=== PATIENT | male | born 1965 | race Caucasian/White ===

== ENCOUNTER 2018-05-31 20:33 | Emergency (ER) | payer OTHER ==
[2018-05-31] MEDS ORDERED: NA CHLORIDE 0.9% 1,000 ML ONE (21:47)
--- NOTE | 2018-05-31 22:01 | RAD REPORT ---
EXAM DESCRIPTION: Asif Single View05/31/2018 9:53 pm CLINICAL HISTORY: cough COMPARISON: none FINDINGS: The lungs appear clear of acute infiltrate. The heart is normal size. If the film is labeled correctly dextrocardia is present
--- NOTE | 2018-05-31 22:05 | RAD REPORT ---
EXAM DESCRIPTION: CT - Head Brain Wo Cont - 05/31/2018 9:46 pm CLINICAL HISTORY: Dizziness COMPARISON: None. TECHNIQUE: Computed axial tomography of the head was obtained. IV contrast was not requested. All CT scans are performed using dose optimization technique as appropriate and may include automated exposure control or mA/KV adjustment according to patient size. FINDINGS: An intracranial bleed is not seen . The ventricles are normal in caliber. No extra-axial fluid collection is noted. Fluid within the sinuses/ mastoids is not seen. IMPRESSION: No acute intracranial abnormality is seen. If patient's symptoms persist MRI of the bra in would be recommended.
[2018-05-31 22:10] LABS: Absolute Lymphocytes (CBC) 2.1 K/uL (0.7-4.9); Absolute Monocytes 1.1 K/uL (0.1-1.3); Absolute Neutrophil 8.6 K/uL (1.8-8.0); Basophils % 0.6 % (0-1.3); Eosinophils % 0.5 % (0-4.4); Lymphocytes % 17.7 % (15.3-44.8); MCH 29.7 pg (27.0-35.0); MCV 85.9 fL (80-100); MPV 8.7 fL (7.6-11.3); Monocytes % 8.9 % (3.3-12.3); RBC Red Blood Cell Count 5.83 M/uL (4.33-5.43)
[2018-05-31 22:36] LABS: Protime INR 0.98
[2018-05-31] MEDS ORDERED: AMLODIPINE 5 MG TAB ONE (22:42)
[2018-05-31 22:47] LABS: ALT/SGPT 24 U/L (12-78); AST/SGOT 16 U/L (15-37); Albumin 3.6 g/dL (3.4-5.0); Alkaline Phosphatase 93 U/L (45-117); BUN Blood Urea Nitrogen 19 mg/dL (7-18); Bicarbonate 27 mmol/L (21-32); Bilirubin Direct < 0.1 mg/dL (0-0.2); Bilirubin Total 0.3 mg/dL (0.2-1.0); CKMB Creatine Kinase MB < 1.0 ng/mL (0.3-3.6); Creatine Phosphokinase 105 U/L (39-308); Glucose Level 118 mg/dL (74-106); Lipase 98 U/L (73-393); Magnesium 2.5 mg/dL (1.8-2.4); NT PRO-BNP 21 pg/mL (<125); Potassium 4.1 mmol/L (3.5-5.1); Protein, Total 7.5 g/dL (6.4-8.2); Sodium Level 140 mmol/L (136-145)
--- NOTE | 2018-05-31 23:21 | ER ---
Nurse's Notes [facility] Name: Lizbeth Hayes Age: 52 yrs Sex: Male : 1965 Arrival Date: 05/31/2018 Time: 20:34 Bed 6 Private MD: Diagnosis: Dizziness and giddiness;Essential (primary) hypertension Presentation: 05/31 20:37 Presenting complaint: Patient states: Pt complaining of dizziness since Tuesday. States ea [place] and he started feeling dizziness and almost passed out. Pt reports he feels like his head is spinning. Transition of care: patient was not received from another setting of care. Onset of symptoms was May 31, 2018. Risk Assessment: Do you want to hurt yourself or someone else? Patient reports no desire to harm self or others. Initial Sepsis Screen: Does the patient meet any 2 criteria? No. Patient's initial sepsis screen is negative. Does the patient have a suspected source of infection? No. Patient's initial sepsis screen is negative. Care prior to arrival: None. 20:37 Method Of Arrival: Wheelchair ea 20:37 Acuity: ANGEL LUIS 3 ea Triage Assessment: 20:44 General: Appears uncomfortable, Behavior is anxious. Pain: Denies pain. Neuro: Reports ea dizziness, since tuesday. Historical: - Allergies: 20:44 No Known Allergies; ea - Home Meds: 20:44 Hydrocodone-Acetaminophen Oral [Active]; Baclofen Oral [Active]; ea - PSHx: 20:44 back surgery; shoulder surgery; Vasectomy; ea - Immunization history:: Adult Immunizations up to date. - Social history:: Smoking status: Patient/guardian denies using tobacco. - Ebola Screening: : No symptoms or risks identified at this time. - Family history:: not pertinent. Screenin:44 Abuse screen: Denies threats or abuse. Nutritional screening: No deficits noted. ea Tuberculosis screening: No symptoms or risk factors identified. Fall Risk Gait-. Assessment: 21:04 General: Appears in no apparent distress. uncomfortable, Behavior is agitated, anxious. ao General: Reports fatigue for >3 days, Dizziness for the past two days. General: Working outside on the heat. Pain: Denies pain. Neuro: Level of Consciousness is awake, alert, obeys commands, Oriented to person, place, time, situation, Appropriate for age Moves all extremities. Full function Speech is normal, Facial symmetry appears normal, Pupils are PERRLA. Cardiovascular: Heart tones S1 S2 Capillary refill < 3 seconds Patient's skin is warm and dry. Respiratory: Airway is patent Trachea midline Respiratory effort is even, labored, Respiratory pattern is regular, symmetrical. GI: No signs and/or symptoms were reported involving the gastrointestinal system. Abdomen is non-distended. : No signs and/or symptoms were reported regarding the genitourinary system. EENT: No signs and/or symptoms were reported regarding the EENT system. Derm: Skin is intact, Skin is dry, Skin temperature is warm. Musculoskeletal: Circulation, motion, and sensation intact. Range of motion:. 22:20 Reassessment: Patient appears in no apparent distress at this time. Patient and/or ao family updated on plan of care and expected duration. Pain level reassessed. Patient is alert, oriented x 3, equal unlabored respirations, skin warm/dry/pink. 06/01 00:00 Reassessment: DC instructions given to patient. Patient agree to follow up with PCP. ao Vital Signs: 07 20:45 BP 141 / 94; Pulse 90; Resp 18; Temp 97.6; Pulse Ox 98% ; Weight 80.29 kg; Height 5 ft. ea 10 in. (177.80 cm); Pain 0/10; 21:08 Pulse 83; Resp 22; Pulse Ox 97% on R/A; ao 22:31 BP 141 / 100; Pulse 62; Resp 18; Pulse Ox 95% on R/A; tl2 23:41 BP 143 / 88; Pulse 72; Resp 16; Pulse Ox 94% on R/A; ao 20:45 Body Mass Index 25.40 (80.29 kg, 177.80 cm) ea ED Course: 20:34 Patient arrived in ED. am2 20:41 Triage completed. ea 21:04 Bethel Ricks RN is Primary Nurse. ao 21:22 Jose Liu MD is Attending Physician. ayan 21:[address] nj 21:46 CT Head Brain wo Cont In Process Unspecified. EDMS 21:52 XRAY Chest (1 view) In Process Unspecified. EDMS 22:06 Inserted saline lock: 20 gauge in right antecubital area, using aseptic technique. ao Blood collected. 22:06 Patient has correct armband on for positive identification. Pulse ox on. NIBP on. ao 23:20 Lul Burks MD is Referral Physician. [facility] 06/01 00:00 No provider procedures requiring assistance completed. IV discontinued, intact, ao bleeding controlled, No redness/swelling at site. Pressure dressing applied. 00:01 Arm band placed on. ao Administered Medications: 05/31 22:06 Drug: NS 0.9% 1000 ml Route: IV; Rate: 1 bolus; Site: right antecubital; ao 23:38 Follow up: IV Status: Completed infusion; IV Intake: 1000ml ao 22:41 Drug: Norvasc 5 mg Route: PO; ao 23:38 Follow up: Response: No adverse reaction ao 23:38 Drug: Meclizine 25 mg Route: PO; ao 23:38 Follow up: Response: Medication administered at discharge. ao 23:38 Drug: Aspirin 162 mg Route: PO; ao 23:38 Follow up: Response: Medication administered at discharge. ao Intake: 23:38 IV: 1000ml; Total: 1000ml. ao Outcome: 23:20 Discharge ordered by . [facility] 06/01 00:01 Discharged to home via wheelchair. ao Condition: stable Discharge instructions given to patient, Instructed on discharge instructions, follow up and referral plans. Demonstrated understanding of instructions, follow-up care, medications, Prescriptions given X 2. 00:01 Patient left the ED. ao Signatures: Dispatcher [employer] EDMS Jose Liu MD MD cha Ortiz, Alex RN RN Brandie Hare RN RN tl2 John Hilario Amanda am2 Antunez, Elena, RN RN ea Corrections: (The following items were deleted from the chart) 05/31 21:18 20:45 BP 141 / 94; Pulse 18bpm; Resp 18bpm; Pulse Ox 98%; Temp 97.6F; 80.29 kg; Height ea 5 ft. 10 in.; BMI: 25.4; Pain 0/10; ea
--- NOTE | 2018-05-31 23:21 | EDPHYS ---
Physician Documentation [facility] Name: Lizbeth Hayes Age: 52 yrs Sex: Male : 1965 Arrival Date: 05/31/2018 Time: 20:34 Bed 6 Private MD: ED Physician Jose Liu HPI: 05/31 21:35 This 52 yrs old Male presents to ER via Wheelchair with complaints of ayan Dizziness. 21:35 The patient presents with dizziness. Onset: The symptoms/episode began/occurred 3 ayan day(s) ago. Context: occurred at home. Modifying factors: The symptoms are alleviated by holding head still. Associated signs and symptoms: The patient has no apparent associated signs or symptoms. Severity of symptoms: At their worst the symptoms were mild moderate in the emergency department the symptoms are unchanged. Patient's baseline: Neuro:. Historical: - Allergies: 20:44 No Known Allergies; ea - Home Meds: 20:44 Hydrocodone-Acetaminophen Oral [Active]; Baclofen Oral [Active]; ea - PSHx: 20:44 back surgery; shoulder surgery; Vasectomy; ea - Immunization history:: Adult Immunizations up to date. - Social history:: Smoking status: Patient/guardian denies using tobacco. - Ebola Screening: : No symptoms or risks identified at this time. - Family history:: not pertinent. ROS: 21:35 Constitutional: Negative for fever, chills, and weight loss, Eyes: Negative for injury, ayan pain, redness, and discharge, ENT: Negative for injury, pain, and discharge, Neck: Negative for injury, pain, and swelling, Cardiovascular: Negative for chest pain, palpitations, and edema, Respiratory: Negative for shortness of breath, cough, wheezing, and pleuritic chest pain, Abdomen/GI: Negative for abdominal pain, nausea, vomiting, diarrhea, and constipation, Back: Negative for injury and pain, : Negative for injury, bleeding, discharge, and swelling, MS/Extremity: Negative for injury and deformity, Skin: Negative for injury, rash, and discoloration, Psych: Negative for depression, anxiety, suicide ideation, homicidal ideation, and hallucinations, Allergy/Immunology: Negative for hives, rash, and allergies, Endocrine: Negative for neck swelling, polydipsia, polyuria, polyphagia, and marked weight changes, Hematologic/Lymphatic: Negative for swollen nodes, abnormal bleeding, and unusual bruising. 21:35 Neuro: Positive for dizziness, weakness. Exam: 21:35 Constitutional: This is a well developed, well nourished patient who is awake, alert, ayan and in no acute distress. Head/Face: Normocephalic, atraumatic. Eyes: Pupils equal round and reactive to light, extra-ocular motions intact. Lids and lashes normal. Conjunctiva and sclera are non-icteric and not injected. Cornea within normal limits. Periorbital areas with no swelling, redness, or edema. ENT: Nares patent. No nasal discharge, no septal abnormalities noted. Tympanic membranes are normal and external auditory canals are clear. Oropharynx with no redness, swelling, or masses, exudates, or evidence of obstruction, uvula midline. Mucous membranes moist. Neck: Trachea midline, no thyromegaly or masses palpated, and no cervical lymphadenopathy. Supple, full range of motion without nuchal rigidity, or vertebral point tenderness. No Meningismus. Chest/axilla: Normal chest wall appearance and motion. Nontender with no deformity. No lesions are appreciated. Cardiovascular: Regular rate and rhythm with a normal S1 and S2. No gallops, murmurs, or rubs. Normal PMI, no JVD. No pulse deficits. Respiratory: Lungs have equal breath sounds bilaterally, clear to auscultation and percussion. No rales, rhonchi or wheezes noted. No increased work of breathing, no retractions or nasal flaring. Abdomen/GI: Soft, non-tender, with normal bowel sounds. No distension or tympany. No guarding or rebound. No evidence of tenderness throughout. Back: No spinal tenderness. No costovertebral tenderness. Full range of motion. Male : Normal genitalia with no discharge or lesions. Skin: Warm, dry with normal turgor. Normal color with no rashes, no lesions, and no evidence of cellulitis. MS/ Extremity: Pulses equal, no cyanosis. Neurovascular intact. Full, normal range of motion. Neuro: Awake and alert, GCS 15, oriented to person, place, time, and situation. Cranial nerves II-XII grossly intact. Motor strength 5/5 in all extremities. Sensory grossly intact. Cerebellar exam normal. Normal gait. Psych: Awake, alert, with orientation to person, place and time. Behavior, mood, and affect are within normal limits. Vital Signs: 20:45 BP 141 / 94; Pulse 90; Resp 18; Temp 97.6; Pulse Ox 98% ; Weight 80.29 kg; Height 5 ft. ea 10 in. (177.80 cm); Pain 0/10; 21:08 Pulse 83; Resp 22; Pulse Ox 97% on R/A; ao 22:31 BP 141 / 100; Pulse 62; Resp 18; Pulse Ox 95% on R/A; tl2 23:41 BP 143 / 88; Pulse 72; Resp 16; Pulse Ox 94% on R/A; ao 20:45 Body Mass Index 25.40 (80.29 kg, 177.80 cm) ea MDM: 21:22 Patient medically screened. [facility] 21:48 Data reviewed: vital signs, nurses notes, lab test result(s), EKG, radiologic studies, [facility] CT scan, plain films. 05/31 21:35 Order name: Basic Metabolic Panel; Complete Time: 23:18 [facility] 05/31 21:35 Order name: CBC with Diff; Complete Time: 22:32 [facility] 05/31 21:35 Order name: Ckmb; Complete Time: 23:18 [facility] 05/31 21:35 Order name: CPK; Complete Time: 23:18 [facility] 05/31 21:35 Order name: LFT's; Complete Time: 23:18 [facility] 05/31 21:35 Order name: Magnesium; Complete Time: 23:18 [facility] 05/31 21:35 Order name: NT PRO-BNP; Complete Time: 23:18 [facility] 05/31 21:35 Order name: PT-INR; Complete Time: 23:18 [facility] 05/31 21:35 Order name: Ptt, Activated; Complete Time: 23:18 [facility] 05/31 21:35 Order name: Troponin (emerg Dept Use Only); Complete Time: 22:32 [facility] 05/31 21:35 Order name: XRAY Chest (1 view); Complete Time: 22:32 [facility] 05/31 21:35 Order name: Lipase; Complete Time: 23:18 [facility] 05/31 21:35 Order name: TSH; Complete Time: 23:18 [facility] 05/31 23:39 Order name: Urine Dipstick--Ancillary (enter results) ms 05/31 21:35 Order name: EKG; Complete Time: 21:36 [facility] 05/31 21:35 Order name: Cardiac monitoring; Complete Time: 22:24 [facility] 05/31 21:35 Order name: EKG - Nurse/Tech; Complete Time: 22:24 [facility] 05/31 21:35 Order name: IV Saline Lock; Complete Time: 22:24 [facility] 05/31 21:35 Order name: Labs collected and sent; Complete Time: 22:24 [facility] 05/31 21:35 Order name: O2 Per Protocol; Complete Time: 21:42 [facility] 05/31 21:35 Order name: O2 Sat Monitoring; Complete Time: 21:42 [facility] 05/31 21:35 Order name: Urine Dipstick-Ancillary (obtain specimen); Complete Time: 23:39 [facility] 05/31 21:35 Order name: CT Head Brain wo Cont; Complete Time: 22:32 [facility] Administered Medications: 22:06 Drug: NS 0.9% 1000 ml Route: IV; Rate: 1 bolus; Site: right antecubital; ao 23:38 Follow up: IV Status: Completed infusion; IV Intake: 1000ml ao 22:41 Drug: Norvasc 5 mg Route: PO; ao 23:38 Follow up: Response: No adverse reaction ao 23:38 Drug: Meclizine 25 mg Route: PO; ao 23:38 Follow up: Response: Medication administered at discharge. ao 23:38 Drug: Aspirin 162 mg Route: PO; ao 23:38 Follow up: Response: Medication administered at discharge. ao Disposition: 05/31/18 23:20 Discharged to Home. Impression: Dizziness and giddiness, Essential (primary) hypertension. - Condition is Stable. - Discharge Instructions: Dizziness, Hypertension, Hypertension, [id number], Aspirin and Your Heart, Dizziness, [id number]. - Prescriptions for Norvasc 5 mg Oral Tablet - take 1 tablet by ORAL route once daily; 20 tablet. Meclizine 25 mg Oral Tablet - take 1 tablet by ORAL route every 8 hours As needed; 21 tablet. - Medication Reconciliation Form, Thank You Letter, Antibiotic Education, Prescription Opioid Use form. - Follow up: Private Physician; When: 2 - 3 days; Reason: Recheck today's complaints, Continuance of care, Re-evaluation by your physician. Follow up: Lul Burks; When: 2 - 3 days; Reason: Recheck today's complaints, Re-evaluation by your physician. - Problem is new. - Symptoms have improved. Signatures: Dispatcher [employer] EDJose Calderon MD MD cha Ortiz, Alex, RN RN Aileen Lang RN RN abhishek Corrections: (The following items were deleted from the chart) 06/01 00:01 05/31 23:20 05/31/2018 23:20 Discharged to Home. Impression: Dizziness and giddiness; ao Essential (primary) hypertension. Condition is Stable. Discharge Instructions: Dizziness, Hypertension, Hypertension, Atke-bl-Rqnv, Aspirin and Your Heart, Dizziness, Njcc-[id number]. Prescriptions for Norvasc 5 mg Oral Tablet - take 1 tablet by ORAL route once daily; 20 tablet. and Forms are Medication Reconciliation Form, Thank You Letter, Antibiotic Education, Prescription Opioid Use. Follow up: Private Physician; When: 2 - 3 days; Reason: Recheck today's complaints, Continuance of care, Re-evaluation by your physician. Follow up: Lul Burks; When: 2 - 3 days; Reason: Recheck today's complaints, Re-evaluation by your physician. Problem is new. Symptoms have improved. ayan
[2018-05-31] MEDS ORDERED: ASPIRIN 81 MG CHEWABLE TABLET ONE (23:32)
[2018-05-31] MEDS ORDERED: MECLIZINE HCL 12.5 MG TAB ONE (23:32)
[2018-05-31 23:43] LABS: Urine Blood TRACE (NEG); Urine Glucose NEGATIVE (NEG); Urine Protein NEGATIVE (NEG); Urine Specific Gravity >1.030 (1.005-1.030); Urine pH 5.5 (5.0-7.0)
--- NOTE | 2018-06-01 10:01 | EKG ---
Test Date: 2018-05-31 Test Time: 22:03:14 Multimedia Producer: ZAKIYA MEASUREMENT RESULTS: Intervals: Rate: 63 ME: 156 QRSD: 84 QT: 394 QTc: 403 [place]: P: 77 ME: 156 QRS: 84 T: 83 INTERPRETIVE STATEMENTS: Normal sinus rhythm Normal ECG No previous ECG available for comparison Electronically Signed On 06-01-18 09:59:47 CDT by Lul Burks
== END 2018-06-01 00:01 | disposition home or self-care (01) ==
LOC: ER 20:33
DX: I10 Essential (primary) hypertension (principal)
CPT/HCPCS: 36415; 70450; 71045; 80048; 80076; 81003; 82550; 82553; 83690; 83735; 83880; 84443; 84484; 85025; 85610; 85730; 93005; 96360; 96361; 99284; J7030

== ENCOUNTER 2022-03-06 21:05 | Emergency (ER) | payer OTHER, SELFPAY ==
--- OUTSIDE RECORDS SUMMARY | 2022-03-06 21:07 | XMS REPORT | Continuity of Care Document ---
:1965 Author Organization [facility] t Address [facility] [place] [address] [place] [id number] Care Team Providers Name Role Phone Unavailable Unavailable Unavailable Payers Payer Name Policy Type Policy Number Effective Date Expiration Date Marcel gonzalez [employer] HMO [id number] 2018 00:00:00 [employer] II [id number] 2018 00:00:00 Problems This patient has no known problems. Allergies, Adverse Reactions, Alerts Allergy Allergy Status Severity Reaction(s) Onset Inactive Treating Comm ents Source Name Type Date Date Clinician NO KNOWN Drug Active [facility] ALLERGIE Class it of [facility] Medications This patient has no known medications. Procedures This patient has no known procedures. Encounters Start End Encounter Admission Attending Care Care Encounter Source Date/Time Date/Time Type Type Clinicians Facility Department ID 2021-09-18 Emergency [facility] [id number] [facility] 00:29:16 [facility] Results This patient has no known results.
--- NOTE | 2022-03-06 21:35 | ER ---
Nurse's Notes [facility] Name: Lizbeth Hayes Age: 56 yrs Sex: Male : 1965 Arrival Date: 03/06/2022 Time: 21:08 Bed 5 Private MD: Diagnosis: Adverse effect of amphetamines, initial encounter;Paranoia Presentation: 03/06 21:23 Chief complaint: Patient states: I need drug treatment, I need help with drug jb4 addiction. I have been doing methamphetamines for the last year. Coronavirus screen: At this time, the client does not indicate any symptoms associated with coronavirus-19. Ebola Screen: No symptoms or risks identified at this time. Initial Sepsis Screen: Does the patient meet any 2 criteria? No. Patient's initial sepsis screen is negative. Does the patient have a suspected source of infection? No. Patient's initial sepsis screen is negative. Risk Assessment: Do you want to hurt yourself or someone else? Patient reports no desire to harm self or others. Onset of symptoms was March 06, 2022. Transition of care: patient was not received from another setting of care. 21:23 Method Of Arrival: Ambulatory jb4 21:23 Acuity: ANGEL LUIS 2 jb4 21:23 Note Pt now reporting feeling unsafe and that people are after him. Pt appears very jb4 anxious. Provider notified. Historical: - Allergies: 21:26 No Known Allergies; jb4 - Home Meds: 21:26 None [Active]; jb4 - PMHx: 21:26 Drug abuse; jb4 - PSHx: 21:26 back surgery; shoulder surgery; Tonsillectomy; wisdom teeth removed; jb4 - Immunization history:: Adult Immunizations up to date, Client reports receiving the 2nd dose of the Covid vaccine, Client reports receiving the 1st dose of the Covid vaccine. - Social history:: Smoking status: Patient reports the use of cigarette tobacco products, smokes one pack cigarettes per day. Patient uses alcohol, but reports only rare drinking. street drugs, Methamphetamine (Meth). Screenin/17 05:41 Abuse screen: Denies threats or abuse. Denies injuries from another. Nutritional as6 screening: No deficits noted. Tuberculosis screening: No symptoms or risk factors identified. Fall Risk None identified. Assessment: 03/06 22:33 General: pt active in room, washing face in sink. "I'd like to see the provider before as6 we do anything". 23:34 General: Behavior is agitated, anxious. tw5 23:36 General: Reports. General: Appears in no apparent distress. Pain: Pain. Neuro: Level of tw5 Consciousness is awake, alert, obeys commands. 23:38 General: Patient appears aggitated nursing staff introduced themselves. " No you are tw5 toya! I know you are carol ann." It was explained there is another nurse that has similar features. "I dont believe you, you are RE, DONT YOU LEAVE THIS ROOM UNLIT THIS OTHER 'GERRY' COMES IN HERE. Why are you messing me?" Another nurse entered room and patient apologized for his behavior. . 03/07 02:00 General: pt refusing vital signs to be taken. pt removed IV. speech is rambling, pt as6 stating he doesn't feel safe . 06:52 Reassessment: Patient appears in no apparent distress at this time. pt resting at this as6 time. respirations even and unlabored. 07:06 Reassessment: RECD REPORT FROM ALAN MORELOS. 56YO WM P/W DRUG ABUSE, REQUESTING PSYCH bp TRANSFER. PT REFUSING VITALS AND D/C OWN PIV. 12:00 Reassessment: No changes from previously documented assessment. Patient and/or family bp updated on plan of care and expected duration. Pain level reassessed. PT SLEEPING. TRANSFER IN PROCESS. 15:40 Reassessment: Pt walked outside and is smoking, informed pt this is a smoke free [facility] facility, pt reports he might want to be discharged and will be back to his room once he decides. 17:22 Reassessment: Unable to locate pt. Pt left his belongings in ER room 5, shirts and jl7 jeans, placed belongings in belongings bags and sent with security. Overdose: 03/06 23:34 [place] Suicide Severity Screening: "In the past month, have you wished you were tw5 or wished you could go to sleep and not wake up?" Patient responds "no." "In the past month, have you actually had any thoughts of killing yourself?" Patient responds "no." "In your lifetime, have you ever done anything, started to do anything, or prepared to do anything to end your life?" Patient responds "no." "With the life I am living I have felt that I should had soon be , but I have never wanted to kill myself/". 03/07 05:41 [place] Suicide Severity Screening: "In the past month, have you wished you were as6 or wished you could go to sleep and not wake up?" Patient responds "no." Patient responds "yes." Based off client's responses, additional C-SSRS screening questions required. "In the past month, have you actually had any thoughts of killing yourself?" Patient responds "no.". Vital Signs: 03/06 21:23 BP 155 / 97; Pulse 85; Resp 16; Temp 98.9(O); Pulse Ox 97% on R/A; Weight 77.11 kg (R); jb4 Height 5 ft. 10 in. (177.80 cm) (R); Pain 0/10; 03/07 07:00 bp 03/06 21:23 Body Mass Index 24.39 (77.11 kg, 177.80 cm) jb4 07:00 REFUSED BY PT bp ED Course: 03/06 21:08 Patient arrived in ED. bp1 21:26 Triage completed. jb4 21:26 Young Marina PA is PHCP. jm 21:26 Nikita Zhang MD is Attending Physician. jmm 21:26 Arm band placed on right wrist. jb4 22:10 Alan Cope RN is Primary Nurse. as6 22:10 Inserted saline lock: 20 gauge in right antecubital area, using aseptic technique. as6 Blood collected. 23:22 SARS-COV-2 RT PCR (Document "Date of Onset" if Symptomatic) Sent. as6 23:22 Acetaminophen Sent. as6 23:22 Basic Metabolic Panel Sent. as6 23:22 CBC with Diff Sent. as6 23:22 ETOH Level Sent. as6 23:22 Hepatic Function Sent. as6 23:22 PT-INR Sent. as6 23:22 Ptt, Activated Sent. as6 23:22 Salicylate Sent. as6 23:22 Urine Drug Screen Sent. as6 03/07 05:42 Bed in low position. Call light in reach. Side rails up X 1. as6 07:00 IV discontinued, BY PT. bp Administered Medications: No medications were administered Outcome: 03/06 21:34 Discharge ordered by . maddy 03/07 00:03 ER care complete, transfer ordered by . rn 17:23 Patient left the ED. jl7 Signatures: Young Marina PA PA jmm Nieto, Roman, MD MD rn Bryson, James RN RN jb4 Robbie Busby RN RN jl7 Ras Proctor RN RN Eunice Fuentes Tiffany 5 Alan Cope RN RN as6 Corrections: (The following items were deleted from the chart) 03/06 21:54 21:23 Acuity: ANGEL LUIS 4 jb4 jb4
--- NOTE | 2022-03-06 21:35 | EDPHYS ---
Physician Documentation [facility] Name: Lizbeth Hayes Age: 56 yrs Sex: Male : 1965 Arrival Date: 03/06/2022 Time: 21:08 Bed 5 Private MD: ED Physician Nikita Zhang HPI: 03/06 21:28 This 56 yrs old Male presents to ER via Ambulatory with complaints of Drug Abuse. jm 21:28 Onset: The symptoms/episode began/occurred gradually. Associated signs and symptoms:. jmm This is a 56 year old male that presents to the ED wanting to get treatment for methamphetamine abuse. Denies SI or HI. . Historical: - Allergies: 21:26 No Known Allergies; jb4 - Home Meds: 21:26 None [Active]; jb4 - PMHx: 21:26 Drug abuse; jb4 - PSHx: 21:26 back surgery; shoulder surgery; Tonsillectomy; wisdom teeth removed; jb4 - Immunization history:: Adult Immunizations up to date, Client reports receiving the 2nd dose of the Covid vaccine, Client reports receiving the 1st dose of the Covid vaccine. - Social history:: Smoking status: Patient reports the use of cigarette tobacco products, smokes one pack cigarettes per day. Patient uses alcohol, but reports only rare drinking. street drugs, Methamphetamine (Meth). ROS: 21:28 Constitutional: Negative for fever, chills, and weight loss, Cardiovascular: Negative jmm for chest pain, palpitations, and edema, Respiratory: Negative for shortness of breath, cough, wheezing, and pleuritic chest pain. 21:28 All other systems are negative. Exam: 21:28 Constitutional: This is a well developed, well nourished patient who is awake, alert, jmm and in no acute distress. Head/Face: atraumatic. Eyes: EOMI, no conjunctival erythema appreciated ENT: Moist Mucus Membranes Neck: Trachea midline, Supple Chest/axilla: Normal chest wall appearance and motion. Cardiovascular: Regular rate and rhythm. No edema appreciated Respiratory: Normal respirations, no respiratory distress appreciated Abdomen/GI: Non distended, soft Back: Normal ROM Skin: General appearance color normal MS/ Extremity: Moves all extremities, no obvious deformities appreciated, no edema noted to the lower extremities Neuro: Awake and alert Psych: Behavior is normal, Mood is normal, Patient is cooperative and pleasant 03/07 00:06 ECG was reviewed by the Attending Physician. rn Vital Signs: 03/06 21:23 BP 155 / 97; Pulse 85; Resp 16; Temp 98.9(O); Pulse Ox 97% on R/A; Weight 77.11 kg (R); jb4 Height 5 ft. 10 in. (177.80 cm) (R); Pain 0/10; 03/07 07:00 bp 03/06 21:23 Body Mass Index 24.39 (77.11 kg, 177.80 cm) jb4 07:00 REFUSED BY PT bp MDM: 03/06 21:28 Patient medically screened. maddy 21:33 Data reviewed: vital signs, nurses notes. Counseling: I had a detailed discussion with maddy the patient and/or guardian regarding: the historical points, exam findings, and any diagnostic results supporting the discharge/admit diagnosis, the need for outpatient follow up, to return to the emergency department if symptoms worsen or persist or if there are any questions or concerns that arise at home. ED course: Patient has no SI or HI. Patient given resources on drug treatment centers. Advised to follow up with pcp and otherwise given strict return precautions. Patient understood and agrees with the plan of care. . 23:28 ED course: Upon discharge patient stated that he did not feel safe going home and maddy believe that he was being followed. Due to concerns for psychosis. Labs were drawn and patient currently awaits evaluation by [facility] for psychosis.. 03/07 00:02 Transition of care: After a detail discussion of the patient's case, care is [facility] transferred to Nikita Zhang MD. 03/06 21:49 Order name: Acetaminophen; Complete Time: 23:59 [facility] 03/06 21:49 Order name: Basic Metabolic Panel; Complete Time: 23:59 [facility] 03/06 21:49 Order name: CBC with Diff; Complete Time: 23:59 [facility] 03/06 21:49 Order name: ETOH Level; Complete Time: 23:59 [facility] 03/06 21:49 Order name: Hepatic Function; Complete Time: 23:59 [facility] 03/06 21:49 Order name: PT-INR; Complete Time: 23:59 [facility] 03/06 21:49 Order name: Ptt, Activated; Complete Time: 23:59 [facility] 03/06 21:49 Order name: Salicylate; Complete Time: 23:59 [facility] 03/06 21:49 Order name: Urine Drug Screen; Complete Time: 23:59 [facility] 03/06 21:49 Order name: EKG; Complete Time: 21:50 [facility] 03/06 21:49 Order name: EKG - Nurse/Tech; Complete Time: 23:37 [facility] 03/06 21:49 Order name: IV Saline Lock; Complete Time: 23:22 [facility] 03/06 22:25 Order name: SARS-COV-2 RT PCR (Document "Date of Onset" if Symptomatic); Complete Time: [facility] 03:03/06 23:23 Order name: Urine Dipstick-Ancillary; Complete Time: 23:59 [facility] 03/06 21:49 Order name: Labs collected and sent; Complete Time: 23:22 [facility] 03/06 21:49 Order name: Suicide Screening ([place]); Complete Time: 23:37 [facility] 03/06 21:49 Order name: Urine Dipstick-Ancillary (obtain specimen); Complete Time: 23:22 [facility] EC:06 Rate is 73 beats/min. Rhythm is regular. QRS [place] is Normal. GA interval is normal. QRS rn interval is normal. QT interval is normal. No Q waves. T waves are Normal. No ST changes noted. Clinical impression: Normal ECG. Reviewed by me. Administered Medications: No medications were administered Disposition: 00:01 Co-signature as Attending Physician, Nikita Zhang MD. rn Disposition Summary: 03/07/22 00:03 Transfer Ordered Transfer Location: [facility] Facility rn Reason: Higher level of care rn Condition: Stable(03/07/22 00:03) rn Problem: new rn Symptoms: are unchanged rn Accepting Physician: (03/07/22 17:23) [email or web address] Diagnosis - Adverse effect of amphetamines, initial encounter rn - Paranoia rn Forms: - Medication Reconciliation Form rn - SBAR form rn Signatures: Dispatcher [employer] EDYoung Ochoa PA PA jmm Nieto, Roman, MD MD rn Bryson, James, RN RN jb4 Robbie Busby, RN RN jl7 Corrections: (The following items were deleted from the chart) 03/06 21:49 21:34 Home [facility] 21:49 21:34 Stable [facility] 21:49 21:34 Drug Abuse [facility] 03/07 17:23 00:03 Dr. fernandez [email or web address]
[2022-03-06 23:22] LABS: Urine Blood 1+ (Negative); Urine Glucose Negative (Negative); Urine Protein Negative (Negative); Urine Specific Gravity >=1.030 (1.005-1.030); Urine pH 5.5 (5.0-7.0)
[2022-03-06 23:33] LABS: Hematocrit 47.4 % (39.6-49.0); Lymphocytes % 21.3 % (15.3-44.8); MPV 8.3 fL (7.6-11.3); RBC Red Blood Cell Count 5.46 M/uL (4.33-5.43)
[2022-03-06 23:35] LABS: Protime INR 1.01
[2022-03-06 23:45] LABS: Barbiturates NEGATIVE (NEGATIVE); Benzodiazepines NEGATIVE (NEGATIVE); Cocaine NEGATIVE (NEGATIVE); METHAMPHETAM POSITIVE (NEGATIVE); Methadone NEGATIVE (NEGATIVE); Opiates NEGATIVE (NEGATIVE); Phencyclidine NEGATIVE (NEGATIVE); THC Cannibis NEGATIVE (NEGATIVE)
[2022-03-06 23:54] LABS: ALT/SGPT 59 U/L (12-78); AST/SGOT 31 U/L (15-37); Albumin 3.7 g/dL (3.4-5.0); Alkaline Phosphatase 102 U/L (45-117); BUN Blood Urea Nitrogen 22 mg/dL (7-18); Bicarbonate 26 mmol/L (21-32); Bilirubin Direct 0.1 mg/dL (0-0.2); Bilirubin Total 0.7 mg/dL (0.2-1.0); Glucose Level 97 mg/dL (74-106); Potassium 3.7 mmol/L (3.5-5.1); Protein, Total 7.2 g/dL (6.4-8.2); Sodium Level 139 mmol/L (136-145)
[2022-03-07 19:21] VITALS: BP 155/97; TEMP 98.9; O2SAT 97
== END 2022-03-07 17:23 ==
LOC: ER 21:05
DX: F22 Delusional disorders (principal); T43.625A Adverse effect of amphetamines, initial encounter; Z20.822 Contact with and (suspected) exposure to COVID-19; F17.210 Nicotine dependence, cigarettes, uncomplicated
CPT/HCPCS: 36415; 80048; 80076; 80307; 80320; 80329; 81003; 85025; 85610; 85730; 93005; 99283; U0003